=== PATIENT | female | born 1965 | race Caucasian/White ===

== ENCOUNTER 2019-12-29 02:21 | Outpatient (CLI) | payer MEDICAID, SELFPAY ==
--- NOTE | 2019-12-29 14:00 | DI.MRI_ITS ---
EXAM: MR LUMBAR SPINE WO CLINICAL HISTORY: Right lumbar radiculopathy,m54.16. TECHNIQUE: Multiplanar multisequence MRI was performed. COMPARISON: MR MRI - LUMBAR SPINE WO CONTRAST from 04/02/2015 FINDINGS: The T11-12 and T12-L1 discs show normal height and hydration. There is mild concentric bulging and small endplate osteophytes at L1-2. The L2-3 and L3-4 discs have a normal appearance. There is mod erate to severe narrowing of the L4-5 disc. There are endplate osteophytes projecting mainly antral laterally. There are degenerative signal changes in the end plates, stable. No disc herniation is s een. TheL5-S1 disc appears intact. There are small endplate osteophytes. There is no central canal stenosis or neural foraminal narrowing at any level. There are mild facet degenerative changes at L 3-4 through L5-S1. The conus medullaris appears normal. IMPRESSION: Stable degenerative disc changes at L4-5. New mild degenerative disc changes at L1-2. No evidence of disc herniation. DATA REPOSITORY:
== END 2019-12-29 02:41 ==
PROVIDERS: PCP Nurse Practitioner Family; Visit Provider Family Medicine
DX: M54.16 Radiculopathy, lumbar region (principal); M51.37 Other intervertebral disc degeneration, lumbosacral region
CPT/HCPCS: 72148

== ENCOUNTER 2020-01-30 11:04 | Outpatient (CLI) | payer MEDICAID, SELFPAY ==
[2020-01-30 11:09] VITALS: BP 121/74; PULSE 63; RESP 16; TEMP 36.4; O2SAT 98
--- NOTE | 2020-01-30 11:15 | PDOC.PAIN ---
Pain Clinic Procedure Note Procedure Note Procedure Note: Lumbar Epidural Steroid Injection Procedure Note Pre-operative diagnosis: lumbar radiculopathy Post-operative diagnosis: same as above COMMENTS: patient had prior lumbar radicular symptoms affecting her left lower leg which was helped by a EDILI by Dr Serrano in 2014. She now has radiating pain down right leg, to her knee. She has been evaluated by Ms Lucien GOULD from our pain clinic and referred for a course of lumbar epidural steroid injection targeting the L4-5 level, with a right side preference. Patient had an updated MRI L spine which was reviewed. CLARISA CONRAD has been referred to the [facility] for lumbar epidural steroid injection. The patient was greeted by the nurse who verified patients name and . Patient was then taken to the fluoroscopy suite. The patient was interviewed and the medial record reviewed. There were no medical, pharmacologic, radiographic, or other structural contraindications to attempting fluoroscopically guided lumbar epidural steroid injection. Risks and expected side effects as well as potential benefits of the procedure were reviewed and voiced concerns expressed. The patient consent form was signed and witnessed. Standard patient time-out procedure was performed. The patient was placed in the prone position on the fluoroscopy table and automated blood pressure cuff and pulse oximeter applied. The skin entry point for entering/approaching the epidural space by a L4-5 right paramedian approach and marked. Following thorough chlorhexadine preparation of the skin and draping and 1% lidocaine infiltration of the skin entry point and subcutaneous tissues, a 17 gauge 5'' Touhy needle was placed under fluoroscopic guidance and with loss of resistance technique into the epidural space. Needle tip placement and depth were aided and confirmed by fluoroscopy. There was no paresthesia or return of blood or CSF through the needle. 1 cc's of Omnipaque 240 was injected with clear epidural spread confirmed with fluoroscopy. 80mg depomedrol was injected. This is followed by 0.5cc of preservative free 1% lidocaine and 1cc of preservative free normal saline. There was not any unusual discomfort expressed by CLARISA CONRAD. Patient's vital signs were stable throughout the procedure and were as recorded in nursing records. Follow up plans and appointments were discussed with patient. Post procedure instruction was given as documented in nursing records and having met discharge criteria and was discharged from the [facility]. COMMENTS: If this procedure is helpful, it can be completed up to 3 times per 12 months. Of note, patient reported reproduction of right leg pressure down to her knee during injection of the steroid. I personally performed the entire procedure. Benito Crespo MD Pain Management
[2020-01-30] MEDS: methylPREDNISolone ACETATE 80 MG/ML VIAL IJ (11:48)
[2020-01-30] MEDS: Omnipaque 240 MG/ML 50 ML BTL IJ (11:48)
[2020-01-30 11:49] VITALS: BP 120/68; PULSE 53; RESP 17; O2SAT 100
--- NOTE | 2020-01-30 11:54 | DI.RAD_ITS ---
EXAM: XR PAIN CLINIC LUMBAR SP 2V CLINICAL HISTORY: Dx: Lumbar Radiculopathy TECHNIQUE: 2D and realtime digital imaging was performed. CONTRAST MATERIAL: Refer to procedure report. COMPARISON: No exams were available for comparison FINDINGS: Fluoroscopy was provided for Dr. Crespo during the performance of a lumbar epidural steroid injection. Please refer to the procedure report for complete details. Fluoro time: 29.7 seconds IMPRESSION:
== END 2020-01-30 11:24 ==
PROVIDERS: PCP Nurse Practitioner Family; Visit Provider Internal Medicine
DX: M54.16 Radiculopathy, lumbar region (principal)
CPT/HCPCS: 62323; 72100; J1040; Q9967

== ENCOUNTER 2020-08-08 09:18 | Outpatient (CLI) | payer MEDICAID, SELFPAY ==
--- NOTE | 2020-08-08 06:00 | DI.RAD_ITS ---
EXAM: XR PAIN CLINIC SACRIOILIAC 2V CLINICAL HISTORY: Dx: Sacroiliac Joint Dysfunction TECHNIQUE: 2D and realtime digital imaging was performed. CONTRAST MATERIAL: None. COMPARISON: No exams were available for comparison FINDINGS: Fluoroscopy was provided pain management physician during the performance of a therapeutic injection of the right sacroiliac joint. Please refer to the procedure report for complete details. Fluoro time: 25.3 second Cumulative dose: 8.5 mGy IMPRESSION:
[2020-08-08 09:28] VITALS: BP 109/68; PULSE 61; RESP 18; TEMP 36.6; O2SAT 99
[2020-08-08] MEDS: Lidocaine 1% Pres-Free 5 ML VIAL IJ (10:31)
[2020-08-08] MEDS: methylPREDNISolone ACETATE 80 MG/ML VIAL IJ (10:32)
[2020-08-08] MEDS: Omnipaque 240 MG/ML 50 ML BTL IJ (10:32)
--- NOTE | 2020-08-08 10:32 | PDOC.PAIN_ITS ---
Pain Clinic Procedure Note Procedure Note Procedure Note: Date of Procedure: August 08, 2020 INTRA-ARTICULAR SI JOINT INJECTION CLARISA CONRAD has been referred to the [facility] for intra- articular SI joint injection. COMMENTS: Seen by Ms. Mcgraw on 07/29/20. I did review this report and the patient's most recent imaging.. DX: Sacroiliac joint dysfunction Patient was interviewed and the medical record reviewed. There were no medical, pharmacologic, radiographic or other structural contraindications to attempting fluoroscopically guided intra-articular SI joint injection. Risks and expected side effects as well as potential benefit of the procedure were reviewed and voiced concerns addressed. The printed consent form was signed and witnessed. Standard time-out procedure was performed. Patient was placed in the prone position on the fluoroscopy table and automated blood pressure cuff and pulse oximeter applied. The skin entry point for approaching right SI joint was identified under the most advantageous fluoroscopic view and marked. Following thorough Chlorhexadine preparation of the skin and draping and 1% lidocaine infiltration of the skin entry point and subcutaneous tissues, a 22 gauge 3.5 spinal needle was placed under fluoroscopic guidance into right SI joint was identified under the most advantageous fluoroscopic view and marked. SI joint. Intra-articular placement was confirmed by a clear arthrogram resulting from the injection of 0.25ml Omnipaque 240, 1ml 1% lidocaine, and 40mg Depomedrol were injected intra- articularily with an initial reproduction of a significant component of the usual pain. Vital signs were stable throughout the procedure and were as recorded in the docflowsheet by the nursing staff. If given, dosages of intravenous drugs for anxiolysis and analgesia were documented in MAR. Follow up plans and appointments were discussed with the patient. Post procedure instruction was given as documented in nursing documentation and hav ing met discharge criteria, and was discharged from the [facility]. COMMENTS: The procedure can be completed up to 3 times per 12 months if it is found to be helpful. David White DO, MPH Pain Management CC: HUGH Syed
[2020-08-08 10:37] VITALS: BP 142/72; PULSE 60; RESP 15; O2SAT 100
== END 2020-08-08 09:38 ==
PROVIDERS: PCP Nurse Practitioner Family; Visit Provider Preventive Medicine Occupational Medicine
DX: M53.3 Sacrococcygeal disorders, not elsewhere classified (principal)
CPT/HCPCS: 27096; 72200; J1040; Q9967

== ENCOUNTER 2021-07-23 11:25 | Outpatient (CLI) | payer MEDICAID, SELFPAY ==
--- NOTE | 2021-07-23 06:00 | DI.RAD_ITS ---
Exam(s) XR PAIN CLINIC SACRIOILIAC 2V EXAM: XR PAIN CLINIC SACRIOILIAC 2V CLINICAL HISTORY: DX: Sacroiliac Joint Dysfunction TECHNIQUE: 2D and realtime digital imaging was performed. CONTRAST MATERIAL: Refer to procedure report. COMPARISON: No exams were available for comparison FINDINGS: Fluoroscopy was provided for Dr. White during the performance of a right sacroiliac joint injection. Please refer to the procedure report for complete details. Ka,r=7.85 mGy IMPRESSION:
[2021-07-23 12:08] VITALS: BP 105/66; PULSE 63; RESP 18; TEMP 36.8; O2SAT 99
[2021-07-23] MEDS: Omnipaque 240 MG/ML 50 ML BTL IJ (12:35)
[2021-07-23] MEDS: methylPREDNISolone ACETATE 80 MG/ML VIAL IJ (12:36)
--- NOTE | 2021-07-23 12:38 | PDOC.PAIN_ITS ---
Pain Clinic Procedure Note Procedure Note Procedure Note: INTRA-ARTICULAR SI JOINT INJECTION Yandy Mg has been referred to the [facility] for intra- articular SI joint injection. COMMENTS: She last had this procedure on 08/08/20 with good pain relief. She was last seen in or office on 04/29/[address] Crespo. DX: Right sacroiliac joint dysfunction Pre-procedure pain VAS: 6/10 Patient was interviewed and the medical record reviewed. There were no medical, pharmacologic, radiographic or other structural contraindications to attempting fluoroscopically guided intra-articular SI joint injection. Risks and expected side effects as well as potential benefit of the procedure were reviewed and voiced concerns addressed. The printed consent form was signed and witnessed. Standard time-out procedure was performed. Patient was placed in the prone position on the fluoroscopy table and automated blood pressure cuff and pulse oximeter applied. The skin entry point for approaching right SI joint was identified under the most advantageous fluoroscopic view and marked. Following thorough Chlorhexadine preparation of the skin and draping and 1% lidocaine infiltration of the skin entry point and subcutaneous tissues, a 22 gauge 3.5 spinal needle was placed under fluoroscopic guidance into right SI joint was identified under the most advantageous fluoroscopic view and marked. Intra-articular placement was confi rmed by a clear arthrogram resulting from the injection of 0.25ml Omnipaque 240, 1ml 1% lidocaine, and 80mg Depomedrol were injected intra-articularily with an initial reproduction of a significant component of the usual pain. Vital signs were stable throughout the procedure and were as recorded in the docflowsheet by the nursing staff. If given, dosages of intravenous drugs for anxiolysis and analgesia were documented in MAR. Follow up plans and appointments were discussed with the patient. Post procedure instruction was given as documented in nursing documentation and having met discharge criteria, and was discharged from the [facility]. COMMENTS: Post-procedure pain VAS = 0/10. David White DO, MPH Pain Management CC: HUGH Syed
[2021-07-23 12:40] VITALS: BP 130/62; PULSE 70; RESP 18; O2SAT 100
== END 2021-07-23 11:26 | disposition home or self-care (01) ==
PROVIDERS: PCP Nurse Practitioner Family; Visit Provider Preventive Medicine Occupational Medicine
DX: M53.3 Sacrococcygeal disorders, not elsewhere classified (principal)
CPT/HCPCS: 27096; 72200; J1040; Q9967

== ENCOUNTER 2021-12-25 15:56 | Outpatient (CLI) | payer MEDICAID, SELFPAY ==
[2021-12-25 14:13] LABS: Anion Gap 7.3 mmol/L (3-11); BUN 17 mg/dL (7-18); CO2 28.7 mmol/L (21.0-32.0); CREATININE 0.8 mg/dL (0.55-1.02); Calcium 8.4 mg/dL (8.5-10.1); Calculated LDL 85 mg/dL (<100); Chloride 105 mmol/L (98-107); Cholesterol 224 mg/dL (<200); FREE T4 0.85 ng/dL (0.76-1.46); Glucose 76 mg/dL (74-106); HDL Cholesterol 125 mg/dL (40-60); Sodium 141 mmol/L (136-145); TSH 3.25 uIU/mL (0.36-3.74); Triglyceride 71 mg/dL (<150)
== END 2021-12-25 15:57 | disposition home or self-care (01) ==
LOC: LBO 16:00
PROVIDERS: PCP Nurse Practitioner Family; Visit Provider Nurse Practitioner Family
DX: R73.03 Prediabetes (principal); E03.9 Hypothyroidism, unspecified
CPT/HCPCS: 36415; 80048; 80061; 83036; 84439; 84443

== ENCOUNTER 2022-06-08 11:52 | Day surgery (SDC) | payer MEDICAID, SELFPAY ==
--- NOTE | 2022-06-08 07:18 | COLE_ITS ---
Date of service: 06/08/22 Time of Service: 13:05 Colonoscopy Report Date of procedure: 06/08/22 Pre-op diagnosis general: screening, Hx of polyps Post-op diagnosis procedure note: other (rectal polyp) Procedure: Colonoscopy with polypectomy Surgeon: Lou Reis Anesthesia Type: General:No Airway Estimated blood loss (mL): 2 Pathology: other (rectal polyp) Complications: None Disposition: same day Indications: We talked about the nature of the procedure, the risks, the benefits, and the overall role of screening colonoscopy as part of routine health maintenance.? I think Yandy has a great understanding of all these elements of colonoscopy, and I think it is fine to plan to proceed with a colonoscopy on June 08.? She provided informed consent and we reviewed the bowel prep today. ? Prep: Miralax/Dulcolax Procedure Start Time: 13:05 Procedure End Time: 13:30 Retraction Time: 14 minutes Findings: one sessile polyp in the rectum Procedure Description: After informed consent was obtained the patient was taken to the procedure room and placed in a left decubitous position. Monitors were applied and a time out was done. The patients name, date of , procedure, allergies to medications and metal in their body was reviewed. The patient was then sedated. Once sedated and comfortable a rectal exam was done. External exam was normal. Internal exam revealed a normal sphincter tone and no palpable masses. The scope was then introduced and retro-flexed. No internal hemorrhoids, polyps or masses were identified on retro-flexion. The scope was then advanced to the cecum without difficulty. The ileocecal vlave and appendiceal orifice were identified. The prep was good. The scope was then slowly retracted over 14 minutes back into the rectum. Polyps were removed with cold forceps in the r ectum. There was no diverticulosis noted. The scope was removed and the patient was woken up and taken back to Same day surgery in stable condition. The patient tolerated the procedure well and there were no immediate complications.
--- NOTE | 2022-06-08 07:20 | W.PM.DSUDISC ---
Date of service: 06/08/22 Time of Service: 13:37 Discharge Plan Disposition Patient Disposition: HOME Condition: Good Discharge Details Reason For Visit: colonoscopy Attending Provider: Lou Reis Primary Care Provider: Rosalind Figueroa Home Meds and New Rx's Prescriptions: Continued ibuprofen 400 mg tablet 400 mg PO DAILY acetaminophen [Tylenol Extra Strength] 500 mg tablet 500 mg PO TID PRN levothyroxine 150 mcg tablet 150 mcg PO DAILY Qty: 90 2RF Discontinued bisacodyl [Dulcolax (bisacodyl)] 5 mg tablet,delayed release (DR/EC) 5 mg PO ONCE Qty: 4 0RF Rx Instructions: Take according to provider's instructions for colonoscopy prep. polyethylene glycol 3350 17 gram/dose powder 17 g PO ONCE Qty: 238 0RF Rx Instructions: To be taken as directed by prescriber's office for colonoscopy prep. Discharge Instructions Additional Instructions: Findings: one polyp Follow up: 5 years Please call if you develop: fevers >101.5 Nausea or Vomiting Abdominal pain that is not transient Rectal bleeding that is more then a tbsp A hard abdomen and inability to pass gas DAY SURGERY UNIT POST ENDOSCOPY INSTRUCTIONS Instructions for everyone who is given Anesthesia: For your safety, please do the following for the next 24 Hours: a. Do not drive or operate dangerous equipment b. Do not drink alcohol beverages or use any recreational drugs for the first 24 hours or while taking pain medications. The medications in your body may have a reaction that can be dangerous. c. Do not make any important decisions or sign any important papers 1. Generally there are no restrictions on your activity after a day or so has gone by, but you may feel a bit fatigued for a few days. 2. After you arrive home you may have a light meal and return to a normal diet as you can tolerate it without feeling sick to your stomach. 3. After surgery, you may feel pain or discomfort. This should be only transient, but if it persists please contact your doctor. 4. If there are any questions regarding the findings of your procedure, please feel free to contact your doctor. 6. If you are unable to contact your doctor with a problem, contact the hospital at [phone]. 7. Continue all your regular medications unless directed otherwise. I understand the above instructions and have no questions. Signature of Patient or Responsible Adult Escort Date/Time Name of Responsible Adult Escort Signature of Nurse Date/Time Activity:: Activity as Tolerated Diet:: As Tolerated Discharge Orders Discharge Orders: Discharge Order (Routine); Ordered 06/08/22 Ordered By: Lou Reis
[2022-06-08 12:15] VITALS: BP 135/74; PULSE 67; RESP 16; TEMP 36.2; O2SAT 98
[2022-06-08] MEDS: Lactated Ringers 1,000 ML 80 ML IV (12:38)
--- NOTE | 2022-06-08 12:53 | W.ANESPRE ---
General Info Date of Service Date Performed: 06/08/22 Height: 5 ft 6 in Weight: 104.1 kg Body Mass Index (BMI): 37.0 Surgical Procedure: Operation Date: 06/08/22 13:35 Proposed Procedure Side Surgeon lennox Reis MD Meds Allergies and Home Medications Allergies Allergy/AdvReac Type Severity Reaction Status Date / Time Penicillins Allergy Intermediate RASH,SOB Unverified 06/08/22 12:16 aspirin AdvReac Intermediate HAS BLOOD Unverified 06/08/22 12:16 DYSCRASIAS Home Medication Medication Instructions Recorded ibuprofen 400 mg tablet 400 mg PO DAILY 01/08/20 acetaminophen 500 mg tablet 500 mg PO TID PRN 04/29/21 (Tylenol Extra Strength) levothyroxine 150 mcg tablet 150 mcg PO DAILY #90 tab-caps 05/01/22 bisacodyl 5 mg tablet,delayed 5 mg PO ONCE #4 tabs 05/25/22 release (Dulcolax (bisacodyl)) polyethylene glycol 3350 17 17 g PO ONCE #238 grams 05/25/22 gram/dose oral powder Current Visit Medications: Current Medications Generic Name Dose Route Start Last Admin Trade Name Freq PRN Reason Stop Dose Admin Hyoscyamine Sulfate 0.125 mg 06/08/22 07:20 Hyoscyamine 0.125 Mg Sl/Oral/Chew SL DIRECTED PRN Ringer's Solution 1,000 mls @ 80 mls/hr 06/08/22 06:00 06/08/22 12:38 IV 07/05/22 23:59 80 mls/hr INFUSION CHARLIE Administration IV Miscellaneous Supplies 1 each 06/08/22 06:00 Iv Access IV 07/05/22 23:59 DIRECTED CHARLIE Ondansetron HCl 4 mg 06/08/22 07:20 Ondansetron 4 Mg/2 Ml Vial IVP Q4H PRN PRN Nausea / Vomiting Sodium Chloride 0 ml 06/08/22 06:00 Normal Saline Flush 10 Ml Syr IV 07/05/22 23:59 PRN PRN Sodium Chloride 0 ml 06/08/22 06:00 Normal Saline 10 Ml Vial IJ 07/05/22 23:59 DIRECTED PRN Sterile Water 0 ml 06/08/22 06:00 Water,Injection,Sterile 10 Ml Vial IJ 07/05/22 23:59 DIRECTED PRN PFSH Active Problems Active Problems: Problem Status Onset Code Screening for colon cancer Z12.11 Hypothyroidism E03.9 Prediabetes R73.03 Right lumbar radiculopathy M54.16 Depressive disorder F32.9 Obesity E66.9 Medical History Medical History Type 2 diabetes mellitus Surgical History Surgical History S/P colonoscopy S/P gastric bypass S/P ORIF (open reduction internal fixation) fracture Right humerus S/P MARYANN-BSO S/P tonsillectomy Tobacco Smoking/Tobacco Use Status: Never Passive smoking exposure: Yes Second hand exposure: Yes Alcohol Alcohol Intake: current Alcohol intake frequency: a few times a week Alcohol type: beer Substance Use Substance use: Never Substance use type: does not use Details: Pt reported pain in right hip. Reported no changes to pain location and current LOP is 3/10. Pt denied any recent falls or injuries. Vital Signs and Lab Results Vital Signs Most Recent Vital Signs in EMR: Most Recent Vital Signs Temp Pulse Resp BP Pulse Ox 36.2 C L 67 16 135/74 98 06/08/22 12:15 06/08/22 12:15 06/08/22 12:15 06/08/22 12:15 06/08/22 12:15 Lab Results Blood Type / Crossmatch: No Data to Display Complete Blood Count: No Data to Display Complete Metabolic Panel: No Data to Display Liver Function Panel: No Data to Display Coagulation Panel: No Data to Display Cardiac Panel: No Data to Display Arterial Blood Gas: No Data to Display Venous Blood Gas: No Data to Display Pancreas Panel: No Data to Display Thyroid Panel: No Data to Display Infectious Disease: No Data to Display Blood Cultures: No Data to Display Toxicology Panel: No Data to Display Anesthesia Assessment and Plan Anesthesia History Personal History: No History of Anesthesia Complications Family History: No Family History of Anesthesia Complications Exercise Tolerance Exercise Tolerance: Metabolic Equivalents>4 Pertinent Negatives Pertinent Negatives: No Symptoms of GERD, No Major Cardiovascular Symptoms or Complaints and No Major Pulmonary Symptoms or Complaints Cardiac & Pulmonary Exam Cardiac Exam: Normal S1/S2 Heart Sounds Pulmonary Exam: Clear Bilateral Breath Sounds Implantable Cardiac Device Does patient have a Pacemaker or an ICD?: No Airway Exam Known Difficult Airway: No Mallampati Class: 1 Mouth Opening: Normal (> 3cm) Thyromental Distance: Greater than 3 cm Neck Range of Motion: Full ROM Neck Circumference: Normal Teeth Condition: Normal Dentition ASA Classification ASA Score: ASA 2 Emergency Case?: No NPO Status NPO Status: NPO Clears >2 hours, Solids >8 hours Anesthesia Plan Resuscitation Status: Full Code Anesthesia Technique: General Anesthesia Airway Planned: Natural Airway Monitors Used: Standard Monitors
[2022-06-08 12:55] VITALS: BMI 37.0
--- NOTE | 2022-06-08 13:28 | BOWEL_PTH ---
PATIENT: Yandy Mg LOC: [facility] U#:[id number] AGE/SX: 57/F ROOM: RE06/08/[address]: Lou Reis MD : 1965 BED: DIS: 06/08/2022 SPEC #: [id number] RECD: 06/08/22 14:55 STATUS: LISSY RE #: [id number] BRANDI: 06/08/22 13:[address]: Lou Reis DEPT: Surgical Specimen RECD BY: Majo Andino ENTERED: 06/08/22 14:56 SP TYPE: Bowel OTHR DR: HUGH Syed Tissues: 1 - BIOPSY BOWEL Procedures: GROSS AND MICRO LEVEL 4 Comments: [id number]
[2022-06-08 13:35] VITALS: BP 111/87; PULSE 57; RESP 18; TEMP 36.4; O2SAT 100
--- NOTE | 2022-06-08 13:46 | W.ANESPOSTOP ---
Postoperative Evaluation Date, Time and Location Date Performed: 06/08/22 Time Performed: 13:35 Patient Location: Day Surgery Unit Vital Signs Most Recent Imported Vital Signs: Most Recent Vital Signs Temp Pulse Resp BP Pulse Ox 36.4 C L 57 L 18 111/87 100 06/08/22 13:35 06/08/22 13:35 06/08/22 13:35 06/08/22 13:35 06/08/22 13:35 Pain Score Most Recent Pain Score: Most Recent Pain Score Pain Level 1 06/08/22 13:35 Assessment Mental Status: Awake (Alert & Oriented to Patient Baseline) Airway and Respiratory Function: Patent airway with normal (patient baseline) respiratory exam Cardiovascular Function: Hemodynamically Stable Hydration Status: Adequately Hydrated Nausea & Vomiting: No Nausea or Vomiting Pain: Pt. Denies Any Pain Peripheral Nerve Block: Patient did not receive a nerve block
[2022-06-08 14:04] VITALS: BP 128/73; PULSE 79; RESP 18; TEMP 36.3; O2SAT 98
== END 2022-06-08 14:15 | disposition home or self-care (01) ==
PROVIDERS: PCP Nurse Practitioner Family; Visit Provider Surgery
PROC: 0DJD8ZZ Inspection of Lower Intestinal Tract, Via Natural or Artificial Opening Endoscopic (ICD-10-PCS; CPT 45378; principal; 2022-06-08 13:30)
DX: Z12.11 Encounter for screening for malignant neoplasm of colon (principal); K62.1 Rectal polyp; Z86.010 Personal history of colon polyps
CPT/HCPCS: 45380; 88305; J2704

== ENCOUNTER → 2023-07-22 02:05 | Outpatient (CLI) | payer BC, MEDICAID, SELFPAY ==
--- NOTE | 2023-07-22 06:45 | DI.MAMMO_ITS ---
Exam(s) MAMMO SCREENING EXAM: MAMMO SCREENING CLINICAL HISTORY: screening,z12.39 TECHNIQUE: Bilateral full field digital CC and MLO mammographic images were obtained with 3D tomosyn thesis and utilizing computer aided detection (CAD). COMPARISON: Available for comparison. FINDINGS: Masses/Architectural Distortion: None seen. Microcalcifications: No suspicious pleomorphic-type are seen. Skin Thickening/Nipple Retraction: None. IMPRESSION: 1. No significant interval change with no specific features of malignancy noted. 2. Unless there is more urgent need, screening mammography is recommended, as per [employer] guidelines. BI-RADS Category 1 - Negative Breast Density - Category B - Scattered areas of fibroglandular density Breast density category C or D implies that the patient has dense breast tissue. Dense breast tissue is very common and is not abnormal but dense breast tissue can make it harder to find cancer on a ma mmogram. Also, dense breast tissue may increase their breast cancer risk. This information about the result of the mammogram report was provided to the patient to raise their awareness. Use this report when you speak with the patient about their risks for breast cancer, which includes their family hist ory. At that time, you may recommend for more screening tests (Ultrasound or MRI) as they might be us eful based on their risk. A negative radiographic report should not delay biopsy if a dominant or clinically suspicious mass is present. Up to ten percent of cancers are not identified on mammography. A negative report may reinforce clinical impression. Adenosis and dense breasts may obscure an underlying neoplasm. False positive reports average 6 to 10%. Patient will receive a letter notifying them of these results.
== END ==
PROVIDERS: PCP Nurse Practitioner Family; Visit Provider Nurse Practitioner Family
DX: Z12.31 Encounter for screening mammogram for malignant neoplasm of breast (principal)
CPT/HCPCS: 77063; 77067

== ENCOUNTER → 2024-01-25 01:54 | Outpatient (CLI) | payer BC, MEDICAID, SELFPAY ==
--- NOTE | 2024-01-25 07:53 | DI.RAD_ITS ---
Exam(s) XR KNEE RT 3V AP,LAT,CHIVO EXAM: XR KNEE RT 3V AP,LAT,CHIVO CLINICAL HISTORY: right knee pain,M25.561. TECHNIQUE: 2D digital imaging was performed. Three views. COMPARISON: No exams were available for comparison FINDINGS: BONES: No acute fracture is present. No bony destructive lesion is seen. JOINTS: Moderate to severe narrowing of the lateral femoral tibial joint space and periarticular spur ring. Spurring also seen at the medial femoral tibial joint space which is maintained. Mild spurrin g at the patellofemoral joint. No joint effusion is seen. SOFT TISSUE: Mild venous varicosities. IMPRESSION: Advanced degenerative changes of the lateral femoral tibial joint. DATA REPOSITORY: RADIATION DOSE DELIVERED:
== END ==
PROVIDERS: PCP Nurse Practitioner Family; Visit Provider Nurse Practitioner Family
DX: M25.561 Pain in right knee (principal)
CPT/HCPCS: 73562

== ENCOUNTER → 2024-02-18 00:05 | Outpatient (CLI) | payer BC, MEDICAID, SELFPAY ==
--- NOTE | 2024-02-18 07:15 | DI.MRI_ITS ---
Exam(s) MR LOWER JOINT RT WO EXAM: MR LOWER JOINT RT WO CLINICAL HISTORY: right knee twisting injury, ? meniscus/LCL tear,[id number] TECHNIQUE: Multiplanar multisequence MRI of the knee was performed. COMPARISON: CR XR KNEE RT 3V AP,LAT,CHIVO from 01/25/2024 FINDINGS: EFFUSION: There is a moderate size knee joint effusion. Synovial thickening is noted in the medial gu tter. There is also a septated Walker cyst in the popliteal fossa which measures approximately 3 cm le ngth. MARROW:There is mild bone contusion signal evident in the lateral femoral condyle and lateral tibial plateau without evidence of fractures. Small developing osteochondral defect in the outer half of the lateral femoral condyle (see below) PATELLOFEMORAL COMPARTMENT: The quadriceps tendon is intact. The patellar ligament is intact. There is relative preservation of the retropatellar cartilage. No evidence of fissure nor significan t chondral defect. No osteochondral defect at this level.There is no intraosseous signal to suggest recent patellar dislocation. There are marginal osteophytes off the medial patella. There are no morales llar retinacular tears. CRUCIATE LIGAMENTS: The anterior cruciate ligament is intact.The posterior cruciate ligament is intac t. MEDIAL COMPARTMENT/MEDIAL MENISCUS: There is signal abnormality throughout the posterior horn of the medial meniscus. In the outer 3rd exhibits myxoid degeneration signal. However the inner aspect exhib its irregularity as well as at the level of the root which appears partially torn. The anterior horn appears intact with mild extrusion.. There is moderate relatively uniform thinning of the articular cartilage of the medial compartment ov er the medial femoral condyle. There is a prominent marginal osteophyte off the outer aspect of the m edial femoral condyle and similar finding off the outer aspect of the medial tibial plateau. There is no significant subarticular edema in the medial compartment with the exception of subjacent to the m edial tibial spine. MEDIAL COLLATERAL LIGAMENT: Intact LATERAL COMPARTMENT/LATERAL MENISCUS: There is complex tearing of the posterior horn of the medial me niscus as well as tear signal in the outer aspect of the anterior horn. There is an element of extrus ion. The root of the posterior horn of the medial meniscus appears to extend across the midline to th e level of the inner aspect of the medial femoral condyle. There is full-thickness articular surface cartilage loss over the main weight-bearing surface of the lateral femoral condyle. There is some mild subarticular bone edema. There are marginal osteophytes o ff the inner and outer aspects of the lateral femoral condyle. Also marginal osteophyte off the later al tibial plateau ILIOTIBIAL BAND: Intact LATERAL COLLATERAL LIGAMENT COMPLEX: The fibular collateral ligament is intact. The biceps femoris t endon is intact.Popliteus muscle and tendon are intact. IMPRESSION: 1. There is complex tearing of both the anterior posterior horns of the lateral meniscus and there is evidence of tear also evident in the inner aspect of the posterior horn of the medial meniscus. Ther e is an element of meniscal extrusion of both menisci. There are overlying marginal osteophytes at th e level of outer aspect of both femoral condyles as well as on both sides the tibial plateau. There i s somewhat variant anatomy of the posterior horn of the lateral meniscus in that the root appears to extend across the midline to the level of the insertion of the PCL on the inner aspect of the medial femoral condyle. 2. There significant osteoarthritic degenerative changes with the most prominent articular cartilage loss being full-thickness over the main weight-bearing surface of the lateral femoral condyle (where there is also some subarticular bone edema). No true osteochondral defects evident. Lesser amount art icular cartilage loss in the medial compartment and relative preservation of retropatellar cartilage evident. 3. There are no cruciate ligament tears. Mild increased signal noted in the ACL which is probably deg enerative. There is no high-grade ACL tear. 4. No obvious collateral ligament tears. 5. Moderate size joint effusion with synovial thickening in the medial gutter. There is also a small Walker cyst. DATA REPOSITORY: Approximately 3 cm.
== END ==
PROVIDERS: PCP Nurse Practitioner Family; Visit Provider Nurse Practitioner Family
DX: S89.91XA Unspecified injury of right lower leg, initial encounter (principal); S83.271A Complex tear of lateral meniscus, current injury, right knee, initial encounter; S83.231A Complex tear of medial meniscus, current injury, right knee, initial encounter; M25.461 Effusion, right knee; M71.21 Synovial cyst of popliteal space [Baker], right knee
CPT/HCPCS: 73721

== ENCOUNTER 2024-03-31 10:37 | Outpatient (CLI) | payer BC, MEDICAID, SELFPAY ==
--- NOTE | 2024-03-31 10:30 | RT.EKG_ITS ---
APPROVED REPORT Exam: Resting ECG Reason for Exam: Unexplained dizziness Patient Location: O HR:63 bpm ECG Measurements Heart Rate 63 AXIS IN 168 P 38 QRSd 94 QRS 15 QT 414 T 33 QTc 424 Conclusion Sinus rhythm...normal P axis, V-rate 50- 99 Normal Electrocardiogram
== END 2024-03-31 10:38 | disposition home or self-care (01) ==
LOC: DI.CM 10:38
PROVIDERS: PCP Nurse Practitioner Family; Visit Provider Nurse Practitioner Family
DX: R42 Dizziness and giddiness (principal)
CPT/HCPCS: 93010

== ENCOUNTER 2024-03-31 11:05 | Emergency (ER) | payer BC, MEDICAID, SELFPAY ==
[2024-03-31] VITALS (7 sets, daily range): BP systolic 125–144; BP diastolic 45–91; PULSE 59–66; RESP 12–21; TEMP 36.1; O2SAT 98–99
--- NOTE | 2024-03-31 11:00 | RT.EKG_ITS ---
APPROVED REPORT Exam: Resting ECG Reason for Exam: Weakness Patient Location: E HR:64 bpm ECG Measurements Heart Rate 64 AXIS [place] 166 P 0 QRSd 86 QRS -16 QT 401 T [id number] QTc 414 Conclusion Sinus rhythm...normal P axis, V-rate 60- 99 Inferior infarct, old...Q >35mS, II III aVF Nonspecific T abnormalities, lateral leads...T <-0.10mV, I aVL V5 V6
--- NOTE | 2024-03-31 11:40 | W.ED.GENAD ---
Discharge Plan Disposition Patient Disposition: Home Condition: Stable Discharge Details Clinical Impression: Dizziness, Vertigo Primary Care Provider: Rosalind Figueroa ED Provider: Luc Cazares Home Meds and New Rx's Prescriptions: New ondansetron 4 mg tablet,disintegrating 4 mg PO Q8H PRN (Reason: nausea and vomiting) Qty: 30 0RF meclizine 25 mg tablet 25 mg PO TID PRN (Reason: dizziness) Qty: 30 0RF Continued ibuprofen 400 mg tablet 400 mg PO DAILY acetaminophen [Tylenol Extra Strength] 500 mg tablet 500 mg PO TID PRN magnesium oxide 400 mg magnesium capsule 400 mg PO DAILY levothyroxine 150 mcg tablet 150 mcg PO DAILY Qty: 90 2RF Discharge Instructions Additional Instructions: Your labs and imaging did not show any concerning findings Follow-up with your primary care provider this week especially if symptoms are continuing If you feel more ill or have new symptoms such as slurred speech, chest pain or difficulty breathing return to the emergency department for reevaluation HPI General Mode of arrival: ambulatory. Date/Time Provider Initiated Documentation: 03/31/24 11:14. Limitations to Documentation: no limitations. Information obtained by: patient. History of Present Illness 58 year old F presents to the emergency department with the chief complaint of dizziness, described as moderate, Patient started experiencing this day(s) (3) and it has been intermittent. No relieving factors improve symptom(s), No exacerbating factors reported . Patient notes denies chest pain, fever/chills and shortness of breath. Patient did receive the following treatments prior to arrival, none Related Data Home Medications ?Medication ?Instructions ?Recorded ?Confirmed ibuprofen 400 mg tablet 400 mg PO DAILY 01/08/20 03/31/24 acetaminophen 500 mg tablet 500 mg PO TID PRN 04/29/21 03/31/24 (Tylenol Extra Strength) levothyroxine 150 mcg tablet 150 mcg PO DAILY #90 tab-caps 07/27/23 03/31/24 magnesium oxide 400 mg PO DAILY 02/28/24 03/31/24 meclizine 25 mg tablet 25 mg PO TID PRN dizziness #30 tabs 03/31/24 ondansetron 4 mg disintegrating 4 mg PO Q8H PRN nausea and 03/31/24 tablet vomiting #30 tabs Previous Rx's ?Medication ?Instructions ?Recorded levothyroxine 150 mcg tablet 150 mcg PO DAILY #90 tab-caps 07/27/23 meclizine 25 mg tablet 25 mg PO TID PRN dizziness #30 tabs 03/31/24 ondansetron 4 mg disintegrating 4 mg PO Q8H PRN nausea and 03/31/24 tablet vomiting #30 tabs Allergies Allergy/AdvReac Type Severity Reaction Status Date / Time Penicillins Allergy Intermediate RASH,SOB Unverified 03/31/24 11:20 aspirin AdvReac Intermediate HAS BLOOD Unverified 03/31/24 11:20 DYSCRASIAS General Stated Complaint: Dizzy/Sync HUBER: 3 Review of Systems All systems reviewed & are unremarkable except as noted in HPI and below Constitutional Constitutional: Denies chills, Denies fever(s) and Denies weakness ENT Ears, Nose, Mouth, and Throat: Reports vertigo and Reports dizziness Cardiovascular Cardiovascular: Denies chest pain and Denies dyspnea Respiratory Respiratory: Denies cough and Denies dyspnea Gastrointestinal Gastrointestinal: Denies abdominal pain, Reports nausea and Reports vomiting Musculoskeletal Musculoskeletal: Denies joint swelling Neurologic Neurologic: Reports vertigo, Reports dizziness and Denies weakness Exam Const General: no acute distress Orientation: alert [facility] Head: normal to inspection Ears: external ears normal General nose exam: external nose normal Mouth: moist mucous membranes Eyes General: appearance normal, both eyes and all related structures Neck Neck: normal visual inspection Resp Effort & Inspection: normal respiratory effort and able to speak in complete sentences Auscultation: clear to auscultation bilaterally Cardio Jugular venous pressure: no JVD Rate: regular rate Heart Sounds: no murmurs GI Palpation: soft and nontender Skin General skin exam: no rashes or lesions noted Neuro General: patient alert and patient oriented x3 Extrem General: normal to inspection Psych Mental Status: mental status grossly normal Course Vital Signs Vital signs: Vital Signs Temperature 36.1 C L 03/31/24 11:09 Pulse 66 03/31/24 11:09 Respiratory Rate 18 03/31/24 11:09 Blood Pressure 144/91 H 03/31/24 11:09 Pulse Oximetry 98 03/31/24 11:09 Temperature 36.1 C L 03/31/24 11:09 Temperature Source Temporal Artery Scan 03/31/24 11:09 Pulse 66 03/31/24 11:09 Respiratory Rate 12 03/31/24 11:31 Respiratory Effort Normal, Non-Labored 03/31/24 11:31 Respiratory Depth Normal 03/31/24 11:31 Respiratory Pattern Normal 03/31/24 11:31 Blood Pressure 144/91 H 03/31/24 11:09 Blood Pressure Position Sitting 03/31/24 11:09 Pulse Oximetry 98 03/31/24 11:09 Oxygen Delivery Method Room Air 03/31/24 11:09 Oxygen Flow Rate 0 03/31/24 11:09 Medical Decision Making 58-year-old female with a history of hypothyroidism comes in with 3 days of intermittent dizziness. She says 1 time it happened when she was walking felt the room was spinning and fell over. Did not lose consciousness, denies any chest pain or shortness of breath. Did not have any while she was sitting and turned her head too quick. She describes a sensation of the room spinning. She denies any chest pain, difficulty breathing. She is ambulatory on arrival with a steady gait. She has no focal neurological or motor deficits, NIH of 0. She does have vertical nystagmus when looking to the left. Reassuring hints exam. She does note a mild headache as well intermittently. Given her symptoms I suspect this is peripheral vertigo but will obtain an CBC, CMP and troponin and also CTA of the neck and head to evaluate for possible dissection as a cause for his symptoms. Labs and imaging unremarkable, patient stable, has a normal telemetry monitoring. Suspect peripheral vertigo given the intermittent nature of her symptoms and reassuring neuroexam. Will provide meclizine and Zofran to use as needed and she will follow-up with her PCP and return precautions given Differential Diagnosis Differential Diagnosis: vertigo, dissection, orthostasis Lab Data Lab results reviewed: Yes I reviewed the patient's lab results. ECG Data Attestation: I personally reviewed and interpreted this ECG (s) as follows: Prior ECG tracings: available for review Interpretation: sinus rate of 64 no stemi Quality:SDOH Health Related Social Needs: No Data to Display PFSH All Active Problems (Updated 03/31/24 @ 13:19 by Luc Cazares MD) Vertigo (Acute) Dizziness (Acute) Dizziness (Acute) Nausea and vomiting (Acute) Right knee meniscal tear (Acute) Hypothyroidism (Chronic) Prediabetes (Chronic) Primary osteoarthritis of right knee (Chronic) Right lumbar radiculopathy (Chronic) Depressive disorder (Chronic) Obesity (Chronic) Medical History Tubular adenoma of colon On 2021 colonoscopy Type 2 diabetes mellitus Surgical History S/P colonoscopy (~06/2022) S/P gastric bypass S/P ORIF (open reduction internal fixation) fracture Right humerus S/P MARYANN-BSO (~1998) for uterine fibroids S/P tonsillectomy Family History Mother , 52 Diabetes Heart disease Hypertension Liver cancer Father Smoker Lung cancer Cancer of kidney Brother Diabetes Hypertension Maternal Grandfather Heart disease Stroke Diabetes Maternal Grandmother Heart disease Paternal Grandfather Heart disease Paternal Grandmother Diabetes Social History (Updated 02/04/23 @ 15:42 by Debbi Blancas) Smoking/Tobacco Use Status: Never Second Hand Exposure: Yes Smoking risk assessment performed?: Yes Alcohol Intake: current Alcohol Intake frequency: a few times a week Alcohol type: beer Drug use: Never Substance use type: does not use Details: Pt reported pain in right hip. Reported no changes to pain location and current LOP is 3/10. Pt denied any recent falls or injuries. Caregiver/Support person: No Household members: children Housing: house Number of Children: 2 number of grandchildren: 4 Communication Needs: None current occupation: [employer] Pets and animals: Yes Pets and animals: cat(s) Sexually active: Yes Do you think of yourself as: straight/heterosexual Current gender identity: female How often do you talk on the phone with friends or family?: once per week How often do you get together with friends or relatives?: three or more times per week How often do you attend presybeterian or oriental orthodox services?: decline to answer Do you belong to any clubs or organized social groups?: no Panel score (0-1 are the most socially isolated patients): 1 What type of physical activity do you participate in: walking Duration: 30-45 minutes/day Frequency: 3-4 times per week Janey/Baptism: No preference Special janey needs: No Seatbelt use: always Helmet use: Yes Helmet use: always Drive intox or ride w/intox chain saw driver: No Do you feel safe at home: Yes Do you feel safe in your relationship?: Yes
[2024-03-31] MEDS: Ondansetron 4 MG/2 ML VIAL IVP (11:50)
[2024-03-31] MEDS: Normal Saline 1,000 ML 1000 ML IV (11:50)
[2024-03-31] MEDS: Meclizine 25 MG TAB PO (11:50)
[2024-03-31 12:02] LABS: Abs Immature Grans 0.02 10^3/uL (0.0-0.06); Absolute Basophil Count 0.02 10^3/uL (0.0-0.2); Absolute Lymphocyte Count 1.86 10^3/uL (1.2-3.4); Absolute Monocyte Count 0.67 10^3/uL (0.1-0.8); Absolute Neutrophil Count 4.45 10^3/uL (1.2-6.7); Basophils % 0.3 %; Eosinophils % 1.4 %; HCT 36.4 % (36.0-46.0); Immature Grans % 0.3 %; Lymphocytes % 26.1 %; MCH 30.1 pg (27.0-33.0); MCV 91 fL (80-95); MPV 10.5 fL (8.0-11.0); Monocytes % 9.4 %; Neutrophils % 62.5 %; Platelet Count 226 10^3/uL (130-400); RBC 3.99 10^6/uL (3.93-5.22); RDW 12.9 % (11.7-14.6); RDW-SD 42.7 fL; WBC 7.12 10^3/uL (4.4-10.8)
[2024-03-31 12:17] LABS: ALT 27 U/L (14-59); AST 18 U/L (15-37); Albumin 3.3 g/dL (3.4-5.0); Alkaline Phosphatase 90 U/L (46-116); Anion Gap 7.9 mmol/L (3-11); BUN 13 mg/dL (7-18); Bilirubin, Total 0.37 mg/dL (0.2-1.0); CO2 27.1 mmol/L (21.0-32.0); CREATININE 0.7 mg/dL (0.55-1.02); Calcium 9.3 mg/dL (8.5-10.1); Chloride 101 mmol/L (98-107); Estimated GFR 99.57 (mL/min/1.73m2); Glucose 106 mg/dL (74-106); Magnesium 1.8 mg/dL (1.8-2.4); Potassium 4.1 mmol/L (3.5-5.1); Sodium 136 mmol/L (136-145); Total Protein 6.9 g/dL (6.4-8.2)
[2024-03-31 12:18] LABS: Troponin I < 50 ng/L (< or =60)
[2024-03-31] MEDS: Omnipaque 350 MG/ML 100 ML BTL IJ (12:35)
[2024-03-31] MEDS: Normal Saline - Diluent 50 ML VIAL IJ (12:35)
--- NOTE | 2024-03-31 12:45 | DI.CT_ITS ---
Exam(s) CT BRAIN NECK CTA EXAM: CT BRAIN NECK CTA CLINICAL HISTORY: vertigo, headache. TECHNIQUE: Imaging Protocol: Axial CT angiography was performed with multi-slice acquisition and mu lti-planar and/or 3D reconstructions. CONTRAST MATERIAL: Intravenous: Omnipaque 350 Contrast volume:70 mL COMPARISON: No exams were available for comparison FINDINGS: CTA Neck W: Aortic arch anatomy: The aortic arch anatomy is bovine configuration. There is no significant stenos is at the origin of the great vessels off of the aortic arch. No intimal flap evident. Anterior circulation: Both common carotid arteries ascend with normal luminal diameters. At the level the carotid bulbs and proximal internal carotid arteries there is no significant plaque and no hemodynamically significant stenosis either side. Both internal carotid arteries are patent in the upper and skull base-carotid canals. Posterior circulation: Both vertebral arteries originate in conventional fashion off of the subclavian arteries and there is no obvious stenosis at the origin of the vertebral arteries. Both vertebral arteries exhibit normal approximately equal luminal diameters within the foramen trans versarium. No evidence of significant narrowing, intraluminal thrombus, nor dissection of the vertebral arteries . Both vertebral arteries contribute to the formation of the basilar artery at the skull base. CTA Brain W: Anterior circulation: Both internal carotid arteries are patent in the skull base-carotid canals as well as within the cave rnous sinuses. The supraclinoid aspects of the ICAs are patent. Both A1 segments are patent as are the anterior cer ebral arteries and there is no evidence of aneurysm at the level of the anterior communicating artery . Both middle cerebral arteries are patent with no evidence of significant stenosis nor intraluminal th rombus. There also no aneurysms of these vessels. Posterior circulation: The basilar artery ascends in the midline. Distally it gives off patent bilateral superior cerebella r arteries. Above this level the basilar artery terminates as patent bilateral posterior cerebral arteries. There is no evidence of aneurysm at the tip of the basilar artery nor elsewhere in the [id number] is. CT BRAIN: There is no evidence of intracranial hemorrhage, mass effect, or shift of midline structures. There are no extra-axial fluid collections. Ventricles are not enlarged or shifted. There are no ring enh ancing lesions in the brain and no abnormal meningeal enhancement. IMPRESSION: 1. Patent carotid arteries in the neck. No hemodynamically significant stenosis. 2. Patent vertebral arteries. 3. Patent intracranial arteries. 4. No significant intracranial findings. No abnormal ring-enhancing lesions in the brain nor abnorma l meningeal enhancement. Report called by myself to ER physician 03/31/2024 1:02 p.m. RADIATION DOSE DELIVERED: 2,292.14mGy.cm Total DLP DATA REPOSITORY: All CT scans at this facility are submitted to the National Radiology Data Registry (NRDR) Dose Index Registry (DIR) with the [employer] ([employer]). RADIATION OPTIMIZATION: All CT scans at this facility use at least one of these dose optimization te chniques: automated exposure control; mA and/or kV adjustment per patient size (includes targeted exa ms where dose is matched to clinical indication); or iterative reconstruction.
== END 2024-03-31 13:28 | disposition home or self-care (01) ==
PROVIDERS: Emergency Provider Emergency Medicine; PCP Nurse Practitioner Family
DX: R42 Dizziness and giddiness (principal); R11.2 Nausea with vomiting, unspecified; E11.9 Type 2 diabetes mellitus without complications; R94.31 Abnormal electrocardiogram [ECG] [EKG]; Z98.84 Bariatric surgery status
CPT/HCPCS: 36415; 70496; 70498; 80053; 93005; 96361; 96374; 99285; 83735; 84484; 85025; 93010; 99284; J2405; J3490

== ENCOUNTER 2024-04-13 03:27 | Outpatient (CLI) | payer BC, MEDICAID, SELFPAY ==
[2024-04-13 14:29] LABS: HCT 39.7 % (36.0-46.0); HGB 12.9 g/dL (11.2-15.7); MCH 29.9 pg (27.0-33.0); MCHC 32.5 % (32.0-36.0); MCV 92 fL (80-95); MPV 10.2 fL (8.0-11.0); Platelet Count 242 10^3/uL (130-400); RBC 4.31 10^6/uL (3.93-5.22); RDW 12.9 % (11.7-14.6); RDW-SD 43.9 fL; WBC 7.67 10^3/uL (4.4-10.8)
[2024-04-13 14:38] LABS: Hemoglobin A1C 6.4 % (<5.7)
[2024-04-13 15:20] LABS: Anion Gap 5.7 mmol/L (3-11); BUN 18 mg/dL (7-18); CO2 30.3 mmol/L (21.0-32.0); Calcium 9.3 mg/dL (8.5-10.1); Calculated LDL 112 mg/dL (<100); Chloride 103 mmol/L (98-107); Cholesterol 219 mg/dL (<200); Glucose 165 mg/dL (74-106); HDL Cholesterol 93 mg/dL (40-60); Potassium 3.6 mmol/L (3.5-5.1); Sodium 139 mmol/L (136-145); TSH (W/Ref FT4) 1.39 uIU/mL (0.36-3.74); Triglyceride 72 mg/dL (<150)
[2024-04-14 09:52] LABS: Hepatitis C Ab w Rflx HCV PCR Negative (Negative)
== END 2024-04-13 03:28 | disposition home or self-care (01) ==
LOC: LBO 03:28
PROVIDERS: PCP Nurse Practitioner Family; Visit Provider Student in an Organized Health Care Education/Training Program
DX: E03.9 Hypothyroidism, unspecified (principal); R73.03 Prediabetes; M17.11 Unilateral primary osteoarthritis, right knee; Z01.818 Encounter for other preprocedural examination
CPT/HCPCS: 36415; 80048; 80061; 85027; 86803; 83036; 84443

== ENCOUNTER 2024-04-13 14:16 | Outpatient (CLI) | payer BC, MEDICAID, SELFPAY ==
--- NOTE | 2024-04-13 13:43 | DI.RAD_ITS ---
Exam(s) XR STANDING ALIGNMENT EXAM: XR STANDING ALIGNMENT CLINICAL HISTORY: OA R KNEE. TECHNIQUE: 2D digital imaging was performed. Four images were obtained. COMPARISON: CR LEFT KNEE 3 VIEW COMPLETE from 03/12/2015 CR XR KNEE RT 3V AP,LAT,CHIVO from 01/25/2024 FINDINGS: BONES: The hips are well maintained. In the right knee, there is moderate narrowing of the medial an d lateral femoral tibial joints. There also prominent osteophyte seen bilaterally, medial larger nicholas n lateral. In the left knee, there is marked narrowing of the medial femoral tibial joint space. Th ere osteophytes seen medially and laterally. The ankles are well maintained.There is no significant leg length discrepancy. SOFT TISSUE: Normal. IMPRESSION: There are marked degenerative changes of the knees as described above. DATA REPOSITORY: RADIATION DOSE DELIVERED:
== END 2024-04-13 14:17 | disposition home or self-care (01) ==
LOC: DIORS 14:16
PROVIDERS: PCP Nurse Practitioner Family; Visit Provider Physician Assistant
DX: M17.11 Unilateral primary osteoarthritis, right knee (principal); Z01.818 Encounter for other preprocedural examination
CPT/HCPCS: 77073

== ENCOUNTER 2024-04-21 06:51 | Day surgery (SDC) | payer BC, MEDICAID, SELFPAY ==
[2024-04-21] VITALS (44 sets, daily range): BP systolic 108–178; BP diastolic 55–95; PULSE 59–98; RESP 9–21; TEMP 36.1–36.7; O2SAT 94–100; BMI 42.0
--- NOTE | 2024-04-21 | DI.RAD_ITS ---
Exam(s) XR HIP RT AP LAT ONLY EXAM: XR HIP RT AP LAT ONLY CLINICAL HISTORY: pain in right hip, s/p TKA. TECHNIQUE: 2D digital imaging was performed. COMPARISON: Prior lumbar spine images of 08/02/2010. FINDINGS: 3 views Cross-table lateral views are suboptimal exposure No evidence of right hip fracture or dislocation or significant joint space narrowing. Bone density appears normal. There is an osteophytic density seen off the anterior superior iliac spine which is not a new finding as it was evident on oblique lumbar films of 2010. IMPRESSION: No obvious right hip fracture. Clinically indicated further study with CT or MRI can be performed. DATA REPOSITORY: RADIATION DOSE DELIVERED:
--- NOTE | 2024-04-21 07:19 | DSE_ITS ---
Date of service: 04/21/24 Time of Service: 10:34 Discharge Plan Disposition Patient Disposition: Home Condition: Good Discharge Details Reason For Visit: Right knee DJD Attending Provider: Danie Finn Primary Care Provider: Rosalind Figueroa Home Meds and New Rx's Prescriptions: New acetaminophen 500 mg tablet 1,000 mg PO Q8H PRN Qty: 90 0RF Rx Instructions: Take two tablets up to every 8 hours as needed for pain celecoxib [Celebrex] 200 mg capsule 200 mg PO BID PRNQty: 60 0RF Rx Instructions: Take one tablet twice daily for pain and inflammation docusate sodium [Colace] 100 mg capsule 100 mg PO BID Qty: 30 0RF pantoprazole 40 mg tablet,delayed release (DR/EC) 40 mg PO DAILY Qty: 14 0RF dexamethasone 4 mg tablet 4 mg PO DAILY Qty: 2 0RF Rx Instructions: Take one tablet once daily for two days gabapentin 300 mg capsule 300 mg PO QHS Qty: 14 0RF Rx Instructions: Take one tablet at bedtime oxycodone 5 mg tablet 5 mg PO Q4H PRNQty: 18 0RF Rx Instructions: Take one tablet up to every 4 hours as needed for severe postoperative pain aspirin 81 mg tablet,delayed release (DR/EC) 81 mg PO BID 30 Days Qty: 60 0RF Continued magnesium oxide 400 mg magnesium capsule 400 mg PO DAILY levothyroxine 150 mcg tablet 150 mcg PO DAILY Qty: 90 2RF ondansetron 4 mg tablet,disintegrating 4 mg PO Q8H PRN (Reason: nausea and vomiting) Qty: 30 0RF meclizine 25 mg tablet 25 mg PO TID PRN (Reason: dizziness) Qty: 30 0RF Discontinued ibuprofen 400 mg tablet 400 mg PO DAILY acetaminophen [Tylenol Extra Strength] 500 mg tablet 500 mg PO TID PRN Discharge Instructions Additional Instructions: Total Knee Discharge Instructions Activity: The most important activity is to walk and to work on gentle motion (both flexion and extension). You should try to take short walks a few times a day. It is important that when resting you work on keeping the knee straight. Avoid putting a pillow behind the knee as this will encourage flexion. Work on range of motion exercises as provided by Physical Therapy. - Start outpatient physical therapy within 2 weeks. - You should wear the RICHARDSON hose on both legs for 2 weeks. You may remove these at night. You may also use any compression sock in place of the RICHARDSON hose. - Utilize [employer] to review exercises, see videos on exercises and obtain basic information pertaining to your surgery and your recovery. Dressing: Remove the Zaheer wrap by 2 days after your surgery and put on the RICHARDSON stocking given to you from the hospital. Keep the surgical dressing (underneath the ZAHEER wrap) in place for at least one week. After the first week it may be removed and replaced with light gauze and tape or nothing. The wound and dressing may get wet after 3 days but avoid soaking the dressing or otherwise it will need to be changed. Many people prefer covering the dressing with cling wrap (saran wrap) to minimize it from getting soaked. If it gets wet, just pat dry. If it starts to peel off then it will need to be changed. Medications: - You should take Tylenol and anti-inflammatory Celebrex as your primary pain control medications. If the Celebrex is too expensive or not covered, please call the office for another alternative (Advil/Ibuprofen or Naproxen/Aleve) - You have been prescribed a stronger pain medication Oxycodone for breakthrough pain, take as needed as prescribed. - You have also been prescribed a stomach acid reduction agent Pantoprozole to help reduce stomach acid and reflux. - You have been prescribed Gabapentin to take at night for restlessness and nerve pain. - You will be taking Aspirin 81mg twice a day for DVT prevention unless instructed otherwise. - You have also been prescribed Decadron to take to control post-operative nausea and pain. You will start this tomorrow. - If you have constipation you should take Colace (which has been prescribed) or Miralax (which is available [id number]). It takes most people 3-4 days to have a bowel movement. Follow-up: 2 weeks If you have any acute concerns or questions, please do not hesitate to contact the office at [phone]. You may contact Dr. Finn with any questions after hours through the hospital at [phone] or on his cell phone at [phone]. Stand Alone Forms: Anesthesia Discharge Inst., Eliu Ko (U) Referrals: Danie Finn MD [ [facility] STAFF PHYSICIAN] - Equipment/Supplies: Walker Activity:: Elevate Remove Dressings/Wound Care:: Do Not Remove Shower/Bathe:: Cover Diet:: As Tolerated Discharge Orders Discharge Orders: Discharge Order (Routine); Ordered 04/21/24 Ordered By: Rsoe Hebert Discharge Data Discharge Date/Time-TO BE ENTERED AT DEPARTURE: 04/21/24 15:11 DS: Summary Time Spent with Patient providing and/or coordinating discharge services: Less than 30 minutes Status at Discharge Functional status at discharge: uses cane/walker Overall status at discharge: patient is progressing back to baseline Mental Status: mental status grossly normal Speech and Movement: speech and movement normal Mood: congruent mood Affect: normal affect Quality:SDOH Health Related Social Needs: No Data to Display Exam Psych Mental Status: mental status grossly normal Speech and Movement: speech and movement normal Mood: congruent mood Affect: normal affect DS: Data Vitals/I&O Vitals and I&O: Vital Signs Temperature 97.9 F 04/21/24 07:12 Pulse 70 04/21/24 07:12 Pulse Rhythm Regular 04/21/24 07:12 Respiratory Rate 18 04/21/24 07:12 Blood Pressure 123/55 L 04/21/24 07:12 Pulse Oximetry 98 04/21/24 07:12 Oxygen Delivery Method Room Air 04/21/24 07:12 Oxygen Flow Rate 0 04/21/24 07:12 Intake & Output 04/20/24 04/20/24 04/21/24 11:59 23:59 11:59 Weight 260 lb 9.382 oz PFSH All Active Problems (Updated 04/24/24 @ 14:07 by Lance Vicente RN) History of right knee joint replacement (Acute 04/21/24) Vertigo (Acute) Dizziness (Acute) Dizziness (Acute) Nausea and vomiting (Acute) Right knee meniscal tear (Acute) Hypothyroidism (Chronic) Prediabetes (Chronic) Right lumbar radiculopathy (Chronic) Depressive disorder (Chronic) Obesity (Chronic) Medical History Tubular adenoma of colon On 2021 colonoscopy Type 2 diabetes mellitus Surgical History S/P colonoscopy (~06/2022) S/P gastric bypass S/P ORIF (open reduction internal fixation) fracture Right humerus S/P MARYANN-BSO (~1998) for uterine fibroids S/P tonsillectomy Family History Mother , 52 Diabetes Heart disease Hypertension Liver cancer Father Smoker Lung cancer Cancer of kidney Brother Diabetes Hypertension Maternal Grandfather Heart disease Stroke Diabetes Maternal Grandmother Heart disease Paternal Grandfather Heart disease Paternal Grandmother Diabetes Social History (Updated 02/04/23 @ 15:42 by Debbi Blancas) Smoking/Tobacco Use Status: Never Second Hand Exposure: Yes Smoking risk assessment performed?: Yes Alcohol Intake: former Drug use: Never Substance use type: does not use Caregiver/Support person: No Household members: children Housing: apartment Number of Children: 2 number of grandchildren: 4 Communication Needs: None current occupation: [employer] Pets and animals: Yes Pets and animals: cat(s) Sexually active: Yes Do you think of yourself as: straight/heterosexual Current gender identity: female How often do you talk on the phone with friends or family?: once per week How often do you get together with friends or relatives?: three or more times per week How often do you attend anabaptist or advent services?: decline to answer Do you belong to any clubs or organized social groups?: no Panel score (0-1 are the most socially isolated patients): 1 What type of physical activity do you participate in: walking Duration: 30-45 minutes/day Frequency: 3-4 times per week Janey/Sikh: No preference Special janey needs: No Seatbelt use: always Helmet use: Yes Helmet use: always Drive intox or ride w/intox fire truck driver: No Do you feel safe at home: Yes Additional Social history: single Time Spent with Patient Time Spent with Patient: <45 minutes Time was spent: preparing to see the patient(eg.review tests), referring, communicating with other health home care music therapist, indepentently interpreting results and counseling the patient
[2024-04-21] MEDS: Acetaminophen 500 MG TAB 1000 MG PO (07:49)
[2024-04-21] MEDS: Gabapentin 300 MG CAP PO (07:49)
[2024-04-21] MEDS: Celecoxib 200 MG CAP 400 MG PO (07:49)
[2024-04-21] MEDS: Lactated Ringers 1,000 ML 80 ML IV (07:50)
--- NOTE | 2024-04-21 08:02 | W.ANESPRE ---
General Info Date of Service Date Performed: 04/21/24 Height: 5 ft 6 in Weight: 118.2 kg Body Mass Index (BMI): 42.0 Surgical Procedure: Operation Date: 04/21/24 09:25 Proposed Procedure Side Surgeon p Knee Total Arthroplasty, Cementless CR Right Danie Finn MD Meds Allergies and Home Medications Allergies Allergy/AdvReac Type Severity Reaction Status Date / Time Penicillins Allergy Intermediate RASH,SOB Verified 04/21/24 07:10 aspirin AdvReac Intermediate HAS BLOOD Verified 04/21/24 07:10 DYSCRASIAS Home Medication ?Medication ?Instructions ?Recorded levothyroxine 150 mcg tablet 150 mcg PO DAILY #90 tab-caps 07/27/23 magnesium oxide 400 mg PO DAILY 02/28/24 meclizine 25 mg tablet 25 mg PO TID PRN dizziness #30 tabs 03/31/24 ondansetron 4 mg disintegrating 4 mg PO Q8H PRN nausea and 03/31/24 tablet vomiting #30 tabs acetaminophen 500 mg tablet 1,000 mg (2 x 500 mg) PO Q8H PRN 04/21/24 pain #90 tabs celecoxib 200 mg capsule (Celebrex) 200 mg PO BID PRN #60 caps 04/21/24 dexamethasone 4 mg tablet 4 mg PO DAILY #2 tabs 04/21/24 docusate sodium 100 mg capsule 100 mg PO BID #30 caps 04/21/24 (Colace) gabapentin 300 mg capsule 300 mg PO QHS #14 caps 04/21/24 oxycodone 5 mg tablet 5 mg PO Q4H PRN #18 tabs 04/21/24 pantoprazole 40 mg tablet,delayed 40 mg PO DAILY #14 tabs 04/21/24 release Current Visit Medications: Current Medications Generic Name Dose Route Start Last Admin Trade Name Freq PRN Reason Stop Dose Admin Acetaminophen 1,000 mg 04/21/24 06:00 04/21/24 07:49 Acetaminophen 500 Mg Tab PO 04/21/24 23:59 1,000 mg PREOP CHARLIE Administration Celecoxib 400 mg 04/21/24 06:00 04/21/24 07:49 Celecoxib 200 Mg Cap PO 04/21/24 23:59 400 mg PREOP CHARLIE Administration Gabapentin 300 mg 04/21/24 06:00 04/21/24 07:49 Gabapentin 300 Mg Cap PO 04/21/24 23:59 300 mg PREOP CHARLIE Administration Hydromorphone HCl 0.5 mg 04/21/24 07:17 Hydromorphone 2 Mg/Ml Syr IVP 05/21/24 07:16 Q2H PRN PRN Ringer's Solution 1,000 mls @ 80 mls/hr 04/21/24 06:00 04/21/24 07:50 IV 04/21/24 23:59 80 mls/hr INFUSION CHARLIE Administration Cefazolin Sodium/Dextrose 2 gm in 50 mls @ 100 mls/hr 04/21/24 06:00 Ancef Duplex IVPB 04/21/24 23:59 PREOP CHARLIE Tranexamic Acid/Sodium Chloride 1,000 mg in 100 mls @ 600 mls/hr 04/21/24 06:00 IVPB 04/21/24 23:59 PREOP CHARLIE Cefazolin Sodium/Dextrose 1 gm in 50 mls @ 100 mls/hr 04/21/24 08:00 Ancef Duplex IVPB 04/22/24 00:29 Q8H CHARLIE IV Miscellaneous Supplies 1 each 04/21/24 06:00 Iv Access IV 04/21/24 23:59 DIRECTED CHARLIE Oxycodone HCl 0 mg 04/21/24 07:17 Oxycodone 5 Mg Tab PO 05/21/24 07:16 Q3H PRN PRN Pain Sodium Chloride 0 ml 04/21/24 06:00 Normal Saline Flush 10 Ml Syr IV 04/21/24 23:59 PRN PRN Sodium Chloride 0 ml 04/21/24 06:00 Normal Saline 10 Ml Vial IJ 04/21/24 23:59 DIRECTED PRN Sterile Water 0 ml 04/21/24 06:00 Water,Injection,Sterile 10 Ml Vial IJ 04/21/24 23:59 DIRECTED PRN PFSH Active Problems Active Problems: Problem Status Onset Code Vertigo Acute R42 Dizziness Acute R42 Dizziness Acute R42 Nausea and vomiting Acute R11.2 Right knee meniscal tear Acute S83.206A Hypothyroidism Chronic E03.9 Prediabetes Chronic R73.03 Primary osteoarthritis of right knee Chronic M17.11 Right lumbar radiculopathy Chronic M54.16 Depressive disorder Chronic F32.9 Obesity Chronic E66.9 Medical History Medical History Tubular adenoma of colon On 2021 colonoscopy Type 2 diabetes mellitus Surgical History Surgical History S/P colonoscopy (~06/2022) S/P gastric bypass S/P ORIF (open reduction internal fixation) fracture Right humerus S/P MARYANN-BSO (~1998) for uterine fibroids S/P tonsillectomy Tobacco Smoking/Tobacco Use Status: Never Passive smoking exposure: Yes Second hand exposure: Yes Alcohol Alcohol Intake: former Substance Use Substance use: Never Substance use type: does not use Vital Signs and Lab Results Vital Signs Most Recent Vital Signs in EMR: Most Recent Vital Signs Temp Pulse Resp BP Pulse Ox 36.6 C 70 18 123/55 L 98 04/21/24 07:12 04/21/24 07:12 04/21/24 07:12 04/21/24 07:12 04/21/24 07:12 Point of Care Results Point of Care Results: Finger Stick Blood Glucose 120 04/21/24 07:22 Lab Results Blood Type / Crossmatch: No Data to Display Complete Blood Count: White Blood Count 7.67 10^3/uL (4.4-10.8) 04/13/24 14:18 Red Blood Count 4.31 10^6/uL (3.93-5.22) 04/13/24 14:18 Hemoglobin 12.9 g/dL (11.2-15.7) 04/13/24 14:18 Hematocrit 39.7 % (36.0-46.0) 04/13/24 14:18 Platelet Count 242 10^3/uL (130-400) 04/13/24 14:18 Complete Metabolic Panel: Sodium 139 mmol/L (136-145) 04/13/24 14:18 Potassium 3.6 mmol/L (3.5-5.1) 04/13/24 14:18 Chloride 103 mmol/L (98-107) 04/13/24 14:18 Carbon Dioxide 30.3 mmol/L (21.0-32.0) 04/13/24 14:18 BUN 18 mg/dL (7-18) 04/13/24 14:18 Creatinine 1.0 mg/dL (0.55-1.02) 04/13/24 14:18 Est GFR (CKD-EPI 2020) 64.90 (mL/min/1.73m2) 04/13/24 14:18 Magnesium 1.8 mg/dL (1.8-2.4) 03/31/24 11:41 Calcium 9.3 mg/dL (8.5-10.1) 04/13/24 14:18 Albumin 3.3 g/dL (3.4-5.0) L 03/31/24 11:41 Glucose 165 mg/dL (74-106) H 04/13/24 14:18 Hemoglobin A1c 6.4 % (<5.7) H 04/13/24 14:18 Liver Function Panel: Alanine Aminotransferase (ALT/SGPT) 27 U/L (14-59) 03/31/24 11:41 Aspartate Amino Transf (AST/SGOT) 18 U/L (15-37) 03/31/24 11:41 Coagulation Panel: No Data to Display Cardiac Panel: Troponin I < 50 ng/L (< or =60) 03/31/24 Arterial Blood Gas: No Data to Display Venous Blood Gas: No Data to Display Pancreas Panel: No Data to Display Thyroid Panel: Thyroid Stimulating Hormone (TSH) 1.39 uIU/mL (0.36-3.74) 04/13/24 14:18 Infectious Disease: Hepatitis C Antibody Negative (Negative) 04/13/24 14:18 Blood Cultures: No Data to Display Toxicology Panel: No Data to Display Anesthesia Assessment and Plan Anesthesia History Personal History: No History of Anesthesia Complications Family History: No Family History of Anesthesia Complications Exercise Tolerance Exercise Tolerance: Metabolic Equivalents>4 Pertinent Negatives Pertinent Negatives: No Symptoms of GERD Cardiac & Pulmonary Exam Cardiac Exam: Normal S1/S2 Heart Sounds Pulmonary Exam: Clear Bilateral Breath Sounds Implantable Cardiac Device Does patient have a Pacemaker or an ICD?: No Airway Exam Known Difficult Airway: No Mallampati Class: 2 Mouth Opening: Normal (> 3cm) Thyromental Distance: Greater than 3 cm Neck Range of Motion: Full ROM Neck Circumference: Normal Teeth Condition: Normal Dentition ASA Classification ASA Score: ASA 2 Emergency Case?: No NPO Status NPO Status: NPO Clears >2 hours, Solids >8 hours Anesthesia Plan Resuscitation Status: Full Code Anesthesia Technique: Spinal Anesthesia Airway Planned: Natural Airway Pain Management: Surgeon and patient request nerve block Monitors Used: Standard Monitors
--- NOTE | 2024-04-21 08:55 | W.ANESNERVE ---
Nerve Block Single Injection Procedure Date and Time Date Performed: 04/21/24 Procedure Start: 08:34 Location Where Procedure Performed Procedure Location: Operating Room Procedure Stop: 09:03 Reason Performed: Postoperative Analgesia Requesting Provider: Danie Finn Timeout Performed Timeout Performed: Yes Monitoring Used ECG, Blood Pressure, SpO2, ETCO2 and See EMR for corresponding vital signs Sterility Sterility: Hand Hygiene, Surgical Cap, Surgical Mask, Sterile Gloves, Sterile Drape/Sheet and Chlorhexidine Sedation Given During Procedure Sedation Given (Indicate Dose Given): Versed IV Dose:: 3mg Patient Mental Status Patient Mental Status: Sedate with meaningful communication Nerve Block 1st Nerve Block: Laterality: Right Block Type: Adductor Canal Ultrasound Image Saved?: Yes Needle / Catheter Used: 100mm SonoPlex II Local Anesthetic Bolus (Indicate Dose Given): Lidocaine used for local infiltration of skin and Ropivacaine 0.5% Dose:: 25cc/0.5% (125mg) Additives (Indicate Dose Given): Epinephrine to make 1:200,000 (5mcg/ml) Dose:: 125mcg and Decadron Dose:: 10mg PF Ultrasound: Sterile probe cover and gel used Nerve Stimulator: Not Used Paresthesia: None Procedure Tolerated: No Complications and Patient tolerated well Procedure Outcome: Successful Performed By: Luc Ribeiro
[2024-04-21] MEDS: ceFAZolin 2 GM/50 ML BAG IVPB (09:39)
[2024-04-21] MEDS: TRANEXAMIC ACID/SOD. CHL. 1,000 MG/100 ML BAG 600 MG IVPB (09:45)
--- NOTE | 2024-04-21 11:09 | W.PM.OP ---
Date of service: 04/21/24 Time of Service: 09:30 Operative Note Operative Note DATE OF PROCEDURE: 04/21/24 PRE-OP DIAGNOSIS: Right Knee Osteoarthritis POST-OP DIAGNOSIS: same PROCEDURE: Right Total Knee Replacement SURGEON: Danie Finn CHRISTMAS TREE GRADER: Rose Hebert ANESTHESIA TYPE: Spinal Refer to Anesthesia Record ESTIMATED BLOOD LOSS: 50 PATHOLOGY: none sent TOURNIQUET TIME: 0 COMPLICATIONS: None Patient was transported to: PACU Patient's condition: stable Implants: 1. Depuy Attune Cementless Cruciate Retaining Femoral Component, Size 6 2. Depuy Attune Cementless Fixed Bearing Tibial Component, Size 5 3. Depuy Attune 6x8 CR/FB Poly 4. Depuy Attune Patellar Component, Size 35 Indications: I have seen Yandy in clinic for symptoms of knee arthritis, confirmed with radiographic findings. She has exhausted nonoperative methods and was having significant limitations in daily function and desired better function and less pain. I discussed the technical details of a knee replacement. I explained the risks of the procedure to include, but not limited to, bleeding, infection, pain, stiffness, fracture, damage to nerves and vessels, damage to muscles and tendons, loosening, need for repeat procedure, blood clot and cardiopulmonary demise. Despite these risks, Yandy elected to proceed. Findings: There was significant signs of arthritis throughout the knee involving all 3 compartments with wear posterolaterally. Procedure Description: Yandy was greeted in the preoperative holding area where the correct side was identified and marked. The consent was reviewed with the patient and signed. The history and physical was updated. All questions were answered. Preoperative medications were administered: Acetaminophen 1000mg, Celebrex 400mg, and Gabapentin 300mg. An adductor canal block was then administered by the anesthesia team in the PACU. Yandy was taken back to the operating room. A spinal anesthestic was then administered. The patient was placed into the supine position on the operating room table. A nonsterile tourniquet was placed high onto the leg but only used for cementing. Posts were placed for positioning during the procedure. All bony prominences were well padded. Prophylactic antibiotics in the form of Cefazolin were administered. 1g of Tranxemic Acid was given intravenously within 30 minutes of incision. The right leg was then prepped with Chloraprep and draped in a standard fashion with impervious stockinette. A second prep with Chloraprep was performed prior to application of Iodine impregnated skin protection. A timeout to confirm correct identity, side and site, procedure, allergies, anesthesia, and medical concerns was performed. With the knee in some flexion, a midline incision was made overlying the knee. Full thickness skin flaps were raised once the extensor mechanism was encountered. These were raised medially and laterally. Any bleeding was controlled with electrocautery. Once the extensor mechanism was fully exposed, a medial parapatellar arthrotomy was performed in a flexed position. All bleeding from the arthrotomy and the geniculate arteries was coagulated. A medial subperiosteal peel was performed with electrocautery to the midcoronal plane. The fat pad was removed while keeping the patellar tendon protected. The anterior distal femur synovium was removed for later visualization. The ACL and PCL were resected and the anterior horn of the lateral meniscus was transected. The knee was then flexed with the patella everted. Large osteophytes from the tibia were removed. Large osteophytes from the femur were removed. Using a step drill, and based on preoperative templating, the femoral canal was entered. This was done with a step drill without any difficulty. The intramedullary distal femoral cut guide was inserted, set to a 5 degree valgus cut and 9mm cut thickness. The distal femoral cut guide was then held in position and pinned. With the soft tissues protected, the distal cut was performed. This was passed over a few times to ensure a planar cut. I then turned attention to the tibia. The extramedullary guide was placed onto the leg. The distal aspect was slid medial to adjust for position of center of ankle and stay in line with shaft of the tibia. Approximately 3-5 degrees of posterior slope was kept in the proximal cutting guide. The center of the guide was aligned with the PCL. The stylus was used to assess cut thickness. The lateral side, most involved side, was set for a 4mm cut. This was then held in position and pinned into place with 2 additional pins and a cross pin for stability. The medial and lateral collateral ligaments were protected and the cut was performed. With this completed, it was assessed and noted to be of appropriate dimensions. The guide was removed. A spacer block was inserted and the knee was brought into extension. The 7mm spacer block provided full extension, without hyperextension and with stability of both the medial and lateral collateral ligaments was assessed. The pins from the femur and the tibia were then removed. The distal femur was then sized. The anterior stylus was placed onto the lateral ridge of the anterior femur. This indicated a size 6 femur. The external rotation of the guide was adjusted to 0 degrees to match the epicondylar axis, perpendicular to [place]atha?s line. The 4-in-1 cutting guide was the placed. The posterior medial femur cut was evaluated and appeared of good thickness. The spacer block was inserted underneath the cutting guide and stability was confirmed in 90 degrees of flexion. An av wing was used to confirm appropriate position of the anterior cut to avoid notching. This cutting guide was ensured to be flush on the cut surface and then pinned into place with headed pins. While protecting the soft tissues, quad tendon, and collateral ligaments, the anterior and posterior cuts were performed with a saw. The central two pins were removed and the posterior and anterior chamfers were cut next. The notch-cutting guide was placed. This was pinned to lateralize the femoral component as much as possible while keeping it flush on the cut surface. This was then pinned into position. A reciprocating saw was used to make the notch cut. A rasp smoothed the cut surfaces. The medial and lateral menisci were removed. A trial femoral component was then inserted, impacted down to the cut surfaces, and the lug holes were drilled. A provisional trial tibial component was placed and the knee was brought through range of motion. The polyethylene was trialed until there was good flexion and extension with excellent stability to the medial and lateral collaterals. The patella was tracking without thumbs. A size 8mm polyethylene component provided the best range of motion and stability with less than 2mm gapping with medial and lateral stress and full extension without significant hyperextension. The tibial cut surface was fully exposed. The tibia was then sized as a 5. The tibia had been previously marked during trialing to correspond to the center of the tibial component to help with rotation. The trial was aligned to this dottie, approximately rotated to the medial 1/3rd of the tibial tubercle. The trial was pinned into place. The tibia was prepared with a reamer and a keel punch and lug holes. The knee was then brought into extension and the patella was measured as 23mm. Using the patellar clamp and cut guide, this was resected to a flat surface with at least 13mm of thickness remaining. The size 35 patella fit the best. This was oriented and then clamped into position. The lugs were drilled. The trial components were removed. The final components were opened on the back table. The periosteal and capsular tissues, especially posteriorly, around the knee were then systematically injected with a periarticular cocktail consisting of 246mg of Ropivacaine, 0.5mg of Epinephrine, 0.08mg of Clonidine, and 30mg of Ketorolac, diluted to 100cc. On the back table, with the implants opened, the cement was mixed. One batch of high viscosity cement was prepared with vacuum assistance. After the cement was ready a small amount was placed on the cut surface of the patella and the patellar button was clamped into position and held. While the cement was hardening, the cementless knee components were placed. Starting with the tibial component, the tibia was subluxed anteriorly and the lug holes of the component were lined up. The tibia was then impacted with an impactor and mallet until the tibial component was in contact with the tibia. The final polyethylene component was inserted. Then, the femoral component was inserted. The lug holes were aligned and the component was impacted into position. The knee was irrigated with Surgiphor Betadine solution. This was allowed to sit in the knee for 3 minutes and then it was irrigated out with saline. After the cement had finally cured, approximately 15min, the clamp was removed from the patella and the knee was taken through range of motion. The patella was tracking with a no-thumbs technique. The capsule was then reapproximated with a No. 1 Vicryl at multiple locations. The capsule was finally closed with a No. 2 Stratafix, barbed suture. The second dosing of 1g TXA was started. Deep tissues were then reapproximated with 0 Vicryl and 2-0 Vicryl. The skin was closed with a running 3-0 Monocryl in a subcuticular fashion. This was reinforced with skin glue. A Mepilex silver dressing was applied along with a [id number] JESÚS wrap. A CryoCuff was applied. Yandy was transferred to the hospital bed without difficulty an suffering no apparent complication. Yandy has a good prognosis. Physical therapy will start today and without restrictions, weight-bearing as tolerated. Aspirin 81mg BID will be used for DVT prophylaxis.
[2024-04-21] MEDS: Normal Saline 10 ML VIAL IJ (11:25)
[2024-04-21] MEDS: HYDROmorphone 2 MG/ML SYR IVP ×3 (11:26→11:51)
[2024-04-21] MEDS: LORazepam 2 MG/ML VIAL 0.5 MG IVP (12:07)
[2024-04-21] MEDS: oxyCODONE 5 MG TAB PO (13:24)
--- NOTE | 2024-04-21 13:36 | PT.INIE ---
Time of Service: 13:30 PT Notes Visit Reasons: Right knee DJD Date: 04/21/24 Referring Doctor: Danie Finn MD PT Orders: PT CONSULT: S/P TKR 04/21/24 Precautions: Standard Patient Profile/Admitting Diagnosis: 58 y o female S/P R TKR, Post op Day 1, being seen for evaluation for return home prep and ability to return home. Social History/Home Situation: [facility] building, no stairs, no ramp. 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 No return date as of right now. No stairs at work. Friend is present with her today, assisting with transport. Equipment Owned/DME: Crutches Subjective: Pain: 7/10, R knee and R hip, feeling dizzy with STS initially, anxious Objective: General Observation: Zaheer wrap R knee, cryocuff, IV being removed at my time of entry, anxious, R LE pain avoidance movements as expected Mental Status: A & O x 3 ROM: R UE, L UE grossly WNL L LE grossly WNL R LE: knee 0-80 deg with zaheer bandage donned, ankle and hip grossly WFL Strength: UE's Grossly WFL, tricep 5/5 for walker use Right Lower Extremity: N/E w MMT, demonstrates active motor ability of ankle, knee and hip flex Left Lower Extremity: Grossly 5/5 Bed Mobility/Transfers: Supine to EOB, Min A of R LE for half of movement, then transitions to I STS CG, progresses to supervision. Complete this task x3, including toilet and recliner chair. Dizzy, improved with breathing techniques, vital stable. Bed to chair supervision with RW Gait: RW step to pattern, high reliance on UE's at this point, but receptive to education re: distributing work between limbs. 20 ft x 2, CG progression to close supervision Balance: Static Sitting: Good Dynamic Sitting: Static Standing: Good with RW support Dynamic Standing: Fair with RW support Therapeutic Procedures: Skilled exercise prescription for ROM, strengthening, and flexibility specific to patients problem HEP review, provided handout Quad set 10 sec x 10, use roll under ankle when supine. NO pillow under knee Glute set 10 s x 10 Heel slide seated easier, progres to supine Progress to SLR with stable quad activation as tolerated Seated march Ankle pumps Informed Consent/Education: Patient instructed in purpose of PT consult and plan of care. Treatment: Initial evaluation [id number] Assessment: Patient is a 58 year old female referred to physical therapy services with reason for PT evaluation of safe discharge home S/P R TKR post op day 1. Patient presents with with strength and ROM deficits appropriate for post op condition, balance dependent on RW, and gait impairments related to acute medical condition. She is demonstrating appropriate mechanics with STS, transfers, appropriate use of RW, and body awareness techniques for safe transition home with family support. She will require outpatient PT treatment per MD instruction to restore function and safety. RW required to limit falls and improve functional transfer safety during her acute post op stage of recovery. Patient is assessed as low complexity based on the following: History: Per EMR, lives in one floor apt with 16 yo supportive grandson. Examination: impairment and functional limitations as noted above Presentation: stable Decision Making: Easy Plan of Care/Treatment Plan: Discharge home with family supervision with RW, return outpatient PT per MD orders. TREATMENT CODE/TIME: 42777 x 50 minutes, [id number] Onelia Sinclair, MPT [facility]
--- NOTE | 2024-04-21 14:54 | W.ANESPOSTOP ---
Postoperative Evaluation Date, Time and Location Date Performed: 04/21/24 Time Performed: 14:54 Patient Location: Day Surgery Unit Vital Signs Most Recent Imported Vital Signs: Most Recent Vital Signs Temp Pulse Resp BP Pulse Ox 36.2 C L 94 H 18 142/93 H 98 04/21/24 14:18 04/21/24 14:18 04/21/24 14:18 04/21/24 14:18 04/21/24 14:18 Pain Score Most Recent Pain Score: Most Recent Pain Score Pain Level 3 04/21/24 14:18 Assessment Mental Status: Awake (Alert & Oriented to Patient Baseline) Airway and Respiratory Function: Patent airway with normal (patient baseline) respiratory exam Cardiovascular Function: Hemodynamically Stable Hydration Status: Adequately Hydrated Nausea & Vomiting: No Nausea or Vomiting Pain: Pain is tolerable per patient Peripheral Nerve Block: Regional nerve block not resolved at time of post operative discharge
== END 2024-04-21 15:11 | disposition home or self-care (01) ==
PROVIDERS: PCP Nurse Practitioner Family; Visit Provider Student in an Organized Health Care Education/Training Program
PROC: (CPT 27447; principal; 2024-04-21 09:15)
DX: M17.11 Unilateral primary osteoarthritis, right knee (principal); E11.9 Type 2 diabetes mellitus without complications; E66.9 Obesity, unspecified; Z68.41 Body mass index [BMI] 40.0-44.9, adult; E03.9 Hypothyroidism, unspecified
CPT/HCPCS: 27447; 76942; 97161; 73502; C1776; J0171; J0690; J1100; J2060; J2250; J2401; J2405; J2704; J2795; J3010

== ENCOUNTER 2024-05-05 10:29 | Outpatient (CLI) | payer BC, MEDICAID, SELFPAY ==
--- NOTE | 2024-05-05 09:30 | DI.RAD_ITS ---
Exam(s) XR KNEE RT 1V XR STANDING ALIGNMENT EXAM: XR STANDING ALIGNMENT and XR knee RT 1 V CLINICAL HISTORY: 1ST POST OP S/P R TKA. TECHNIQUE: 2D digital imaging was performed. Five images were obtained. COMPARISON: CR XR KNEE RT 3V AP,LAT,CHIVO from 01/25/2024 CR XR STANDING ALIGNMENT from 04/13/2024 FINDINGS: Examination limited by patient body habitus. BONES: Moderate degenerative changes are seen in the lower visualized lumbar spine. Are also appears to be arthrosis of the hips bilaterally. The patient is now status post right total knee replacemen t. The orthopedic hardware is in good position. No suspicious lucencies are seen about the orthoped ic hardware. There are marked degenerative changes seen in the left knee characterized by joint spac e narrowing and osteophytes. The findings are most marked in the medial femoral tibial joint. The a nkles are well maintained.The right lower extremity is approximately 2 cm longer than the left lower extremity. SOFT TISSUE: There is soft tissue swelling of the right lower extremity consistent with the patient's recent knee replacement. IMPRESSION: 1. Right total knee arthroplasty. 2. Marked degenerative changes seen in the left knee. DATA REPOSITORY: RADIATION DOSE DELIVERED:
== END 2024-05-05 10:30 | disposition home or self-care (01) ==
LOC: DIORS 10:30
PROVIDERS: PCP Nurse Practitioner Family; Referring Provider Nurse Practitioner Family; Visit Provider Physician Assistant
DX: Z96.651 Presence of right artificial knee joint (principal); Z47.1 Aftercare following joint replacement surgery
CPT/HCPCS: 73560; 77073

== ENCOUNTER 2024-06-08 10:36 | Outpatient (CLI) | payer BC, MEDICAID, SELFPAY ==
--- NOTE | 2024-06-08 06:30 | DI.RAD_ITS ---
Exam(s) XR PAIN CLINIC SACRIOILIAC 2V EXAM: XR PAIN CLINIC SACRIOILIAC 2V CLINICAL HISTORY: DX: Sacroiliac Dysfunction TECHNIQUE: 2D and realtime digital imaging was performed. CONTRAST MATERIAL: Refer to procedure report. COMPARISON: No exams were available for comparison FINDINGS: Fluoroscopy was provided for Dr. White during the performance of a right sacroiliac joint injection. Please refer to the procedure report for complete details. Ka,r=14.9 mGy IMPRESSION: RADIATION DOSE DELIVERED: 0.0 0.0 0
[2024-06-08 11:01] VITALS: BP 122/79; PULSE 64; RESP 18; TEMP 36.8; O2SAT 99
[2024-06-08 11:30] VITALS: PULSE 66; RESP 15; O2SAT 100
[2024-06-08 11:31] VITALS: BP 135/80; PULSE 62; PULSE 63; RESP 13; O2SAT 100
[2024-06-08] MEDS: methylPREDNISolone ACETATE 80 MG/ML VIAL IJ (11:43)
[2024-06-08] MEDS: Omnipaque 240 MG/ML 50 ML BTL IJ (11:43)
[2024-06-08] MEDS: Nerve Block Tray 1 EACH MC (11:44)
--- NOTE | 2024-06-08 11:56 | PDOC.PAIN_ITS ---
Date of service: 06/08/24 Time of Service: 11:56 Pain Managment Procedure Note Procedure Note Procedure Note: PROCEDURE NOTE RIGHT INTRA-ARTICULAR SACROILIAC JOINT INJECTION Date of Service: June 08, 2024 Patient: Yandy Mg Provider: David White DO, MPH COMMENTS: I previously evaluated the patient in the office and their symptoms in relation to the sacroiliac joint pain have remained the same. Pre-operative diagnosis: Sacroiliac joint dysfunction ICD-10 M53.3 Post-operative diagnosis: Same Pre-procedure pain: VAS= 8/10 Yandy Mg has been referred to our [facility] for a Right intra-articular Sacroiliac joint injection. Yandy was interviewed and the medical record reviewed. There were no medical, pharmacologic, radiographic or other structural contraindications to attempting a fluoroscopically-guided, contrast-enhanced, intra-articular Sacroiliac joint injection. The risks, benefits, and potential side effects of this procedure were reviewed with the patient. Questions and concerns were addressed. After it was clear that Yandy was fully informed about the procedure, the printed consent form was signed by the patient and myself. Yandy was placed in the prone position on the fluoroscopy table and an automated blood pressure cuff, 3 lead EKG, and pulse oximeter were applied. The skin entry point for approaching the Right sacroiliac joint was identified under the most advantageous fluoroscopic view and marked. Following thorough Chlorhexadine preparation of the skin and draping with sterile surgical drapes, 2 mls of 1% lidocaine was infiltrated into the skin at the entry point and the surrounding subcutaneous tissues. Next, a 3.5 22G spinal needle was placed under fluoroscopic guidance into the Left sacroiliac joint. Intra-articular placement was confirmed by a clear arthrogram resulting from the injection of 0.25ml of Omnipaque-240. Next, 1 ml of Depo- Medrol 80 mg/ml was injected intra- articularly with an initial reproduction of a significant component of the usual pain. This was followed with 1 ml of 1% Lidocaine. The needle was then removed without difficulty. (49 ml of Omnipaque-240 was wasted). Yandy's vital signs were stable throughout the procedure and were as recorded in nursing records. Follow up plans and appointments were discussed with Yandy. Post procedure instructions were given as documented in nursing records. Having met discharge criteria, Yandy was [facility] from the [facility]. COMMENTS: Post-procedure pain: VAS= 1/10. If the patient receives at least 50% improvement in pain and/or function for at least 3 months, this procedure can be repeated if needed. I personally performed this entire procedure. DAVID WHITE DO, MPH ABPMR-subspecialty board certification in Pain Medicine [facility]
== END 2024-06-08 10:37 | disposition home or self-care (01) ==
LOC: PC 10:36
PROVIDERS: PCP Nurse Practitioner Family; Visit Provider Preventive Medicine Occupational Medicine
DX: M53.3 Sacrococcygeal disorders, not elsewhere classified (principal)
CPT/HCPCS: 27096; 72200; J1010; Q9967

== ENCOUNTER 2024-12-12 01:53 | Outpatient (CLI) | payer BC, MEDICAID, SELFPAY ==
--- NOTE | 2024-12-12 | DI.RAD_ITS ---
Exam(s) XR KNEE RT 4V AP,LAT,CHIVO,PAT EXAM: XR KNEE RT 4V AP,LAT,CHIVO,PAT CLINICAL HISTORY: PAIN RT KNEE M25.561, TRIP FALL PAIN ANT KNEE S/P TKR. TECHNIQUE: 2D digital imaging was performed. Four images were obtained. AP, merchant's, lateral and oblique views were obtained. COMPARISON: CR XR KNEE RT 1V from 05/05/2024 FINDINGS: BONES: There are stable post operative changes of a right total knee replacement present. No fractur e or dislocation. JOINTS: The orthopedic hardware is in good position. No evidence of hardware loosening. SOFT TISSUE: Normal. IMPRESSION: 1. Stable right total knee replacement. 2. No acute fracture or dislocation. DATA REPOSITORY: RADIATION DOSE DELIVERED:
--- NOTE | 2024-12-12 | DI.RAD_ITS ---
Exam(s) XR FOOT RT COMPLETE EXAM: XR FOOT RT COMPLETE CLINICAL HISTORY: INJURY RT FOOT S99.921A PAIN DISTAL 3RD METATARSAL AND 3RD TOE. TECHNIQUE: 2D digital imaging was performed of the right foot. Three images were obtained. AP, obl ique and lateral views were obtained. COMPARISON: No exams were available for comparison FINDINGS: BONES: There is an acute minimally displaced fracture through the diaphysis of the proximal phalanx o f the 3rd toe best appreciated on the oblique view. No bony destructive lesion is seen. There is a m oderate size plantar calcaneal spur. JOINTS: No dislocation present. Mild degenerative changes are seen in the foot particularly in the ta rsal metatarsal joints. SOFT TISSUE: Normal. IMPRESSION: Acute minimally displaced fracture involving the proximal phalanx of the right 3rd toe. DATA REPOSITORY: RADIATION DOSE DELIVERED:
== END 2024-12-12 02:13 ==
LOC: DI 01:54
PROVIDERS: PCP Nurse Practitioner Family; Visit Provider Physician Assistant
DX: S92.511A Displaced fracture of proximal phalanx of right lesser toe(s), initial encounter for closed fracture (principal); X58.XXXA Exposure to other specified factors, initial encounter; Z96.651 Presence of right artificial knee joint; M25.561 Pain in right knee
CPT/HCPCS: 73564; 73630